=== PATIENT | male | born 1950 | race American Indian/Alaskan Native ===

== ENCOUNTER 2018-05-16 17:11 | Emergency (ER) | payer MEDICARE ==
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
[2018-05-17 00:57] LABS: Hematocrit 29.2 % (35.5-45.6); Hemoglobin 9.3 gm/dl (11.8-15.2); Mean Corpuscular HGB Conc 32 % (32-34); Mean Corpuscular Hemoglobin 33 pg (28-32); Mean Corpuscular Volume 103 fl (84-94); Platelet Count 161 K/mm3 (140-440); Red Blood Count 2.83 M/mm3 (3.65-5.03); Red Cell Distribution Width 18.6 % (13.2-15.2)
[2018-05-17 01:06] LABS: INR 1.09 (0.87-1.13)
[2018-05-17 01:07] LABS: Partial Thromboplastin Time 35.5 Sec. (24.2-36.6)
[2018-05-17 01:22] LABS: Albumin 2.9 g/dL (3.9-5); Calcium 6.6 mg/dL (8.4-10.2)
[2018-05-17 01:35] VITALS: BP 174/96
[2018-05-17 03:03] LABS: Anisocytosis 1+; Basophils % (Manual) 0 % (0.0-1.8); Platelet Estimate Consistent w Auto; Total Cells Counted 100
== END 2018-05-17 02:58 | disposition other institution (70) ==
LOC: ED 17:11
DX: H54.62 Unqualified visual loss, left eye, normal vision right eye (principal); E11.9 Type 2 diabetes mellitus without complications; R51 Headache; Z87.891 Personal history of nicotine dependence
CPT/HCPCS: 36415; 70450; 70480; 80053; 85007; 85025; 85610; 85730